=== PATIENT | male | born 1955 | race African-American/Black ===

== ENCOUNTER 2021-03-09 12:06 | Emergency (ER) | payer OTHER ==
[~2021-03-09] VITALS: Ht 175.3 cm; Wt 75.0 kg
[~2021-03-09 12:06] MED LIST: LISI20TA18 PO; MESA1.2T PO
[2021-03-09 12:43] VITALS: BP 149/83
--- NOTE | 2021-03-09 12:52 | PHYS DOC ---
Past History Past Medical History: Hypertension Additional Past Medical Histor: LIVER TRANSPLANT, ulcerative colitis Additional Past Surgical Histo: Liver transplant Smoking: Non-smoker Alcohol Use: Rarely Drug Use: None General Adult EDM: Chief Complaint: ABNORMAL LABS HPI: HPI: 66-year-old male presents with report of abnormal potassium of 7.0 which was obtained on routine laboratory draw by patient's GI physician- Dr. Bennett. Patient follows with GI physician secondary to ulcerative colitis and history of a liver transplant. Physician obtained the laboratory data this morning and called patient to present to the ER for further evaluation and treatment if needed. GI physician reports patient's creatinine was normal. Patient reports he has not had any symptoms or complaints at this time. Patient does report this is happened in the past for which he has required need for presentation to the ER. Review of Systems: Review of Systems: Constitutional: Denies fever or chills Eyes: Denies redness or eye pain HENT: Denies nasal congestion or sore throat Respiratory: Denies cough or shortness of breath Cardiovascular: Denies chest pain or palpitations GI: Denies abdominal pain, nausea, or vomiting : Denies dysuria or hematuria Musculoskeletal: Denies back pain or joint pain Integument: Denies rash or skin lesions Neurologic: Denies headache, focal weakness or sensory changes Complete systems were reviewed and found to be within normal limits, except as documented in this note. Allergies: Allergies: Allergies Coded Allergies Type Severity Reaction Last Updated Verified No Known Drug Allergies 09/04/14 No Physical Exam: PE: Constitutional: Well developed, well nourished, no acute distress, non-toxic appearance HENT: Normocephalic, atraumatic Eyes: Conjunctiva normal, no discharge Neck: Normal range of motion, supple Lungs & Thorax: No respiratory distress, equal chest rise and fall Abdomen: Soft, no tenderness, no guarding/rebound tenderness/distention Skin: Warm, dry Extremities: No tenderness, ROM intact, no edema Neurologic: Alert and oriented X 3, no focal deficits noted Psychologic: Affect normal, judgment normal Current Patient Data: Vital Signs: Vital Signs Date Time Temp Pulse Resp B/P (MAP) Pulse Ox O2 Delivery O2 Flow Rate FiO2 03/09/21 12:43 98.2 62 16 149/83 (105) 98 Room Air EKG: EKG: @1241 NSR at 60bpm, NO ST elevation, no hyperacute t waves, t wave inversion to III and aVF, QRS 76mns, QT/QTc 358/358ms Radiology/Procedures: Radiology/Procedures: [] Heart Score: C/O Chest Pain: N/A Course & Med Decision Making: Course & Med Decision Making Pertinent Lab studies reviewed. (See chart for details) Patient presents with report of hyperkalemia which was noted on routine lab draw by patient's GI specialist. Patient denies any complaint. Patient presents for reevaluation in the emergency department here today. Physical exam unremarkable. EKG obtained without acute process. Labs obtained and posted to chart. Potassium elevated but improved from previous outpatient lab result. Discussed results with Dr. Bennett (GI) regarding, who recommends initiating 6.25 mg p.o. hydrochlorothiazide daily for the next few weeks until patient can follow-up back in his office for repeat labs. Patient stable for discharge with outpatient follow-up with PCP/GI. Discussed findings and plan with patient and spouse, who acknowledge understanding and agreement. José Disclaimer: José Disclaimer: This electronic medical record was generated, in whole or in part, using a voice recognition dictation system. Departure Departure: Impression: Primary Impression: Hyperkalemia Disposition: HOME / SELF CARE / HOMELESS Condition: STABLE Referrals: TREY DE SOUZA (PCP) SABINA BENNETT MD Patient Instructions: Hyperkalemia, [id number], Potassium Content of Foods Scripts Hydrochlorothiazide (HYDROCHLOROTHIAZIDE TABLET) 12.5 Mg Tablet 6.25 MG PO DAILY for DIURETIC, #14 TAB 0 Refills Prov: DUSTY SHI DO 03/09/21 DUSTY SHI DO Mar 09, 2021 12:52
[2021-03-09 13:21] LABS: CREATININE 1.3 mg/dL (0.7-1.3); GFR 67.2; POTASSIUM 5.8 mmol/L (3.5-5.1)
[2021-03-09 13:27] LABS: ALBUMIN 4.1 g/dL (3.4-5.0); ALBUMIN/GLOBULIN RATIO 0.9 (1.0-1.7); MAGNESIUM 2.2 mg/dL (1.8-2.4); TOTAL BILIRUBIN 0.3 mg/dL (0.2-1.0); TOTAL PROTEIN 8.7 g/dL (6.4-8.2)
[2021-03-09] MEDS ORDERED: HYDR12.58 PO (13:54)
--- NOTE | 2021-03-09 19:12 | EKG ---
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
== END 2021-03-09 14:03 | disposition home or self-care (01) ==
LOC: ER 12:06
DX: E87.5 Hyperkalemia (principal); I10 Essential (primary) hypertension; Z94.4 Liver transplant status
CPT/HCPCS: 36415; 80053; 83735; 93005; 99284

== ENCOUNTER 2021-04-01 14:29 | Emergency (ER) | payer OTHER ==
[~2021-04-01] VITALS: Ht 175.3 cm; Wt 75.0 kg
[~2021-04-01 14:29] MED LIST changes: +HYDR12.58 PO
[2021-04-01 14:47] VITALS: BP 128/81
--- NOTE | 2021-04-01 15:19 | PHYS DOC ---
Past History Past Medical History: Hypertension Additional Past Medical Histor: UC Past Surgical History: Appendectomy, Cholecystectomy, Other Additional Past Surgical Histo: liver transplant 2018 Smoking: Non-smoker Alcohol Use: Rarely Drug Use: None General Adult EDM: Chief Complaint: ABNORMAL LABS HPI: HPI: Patient is a 66-year-old male coming to the emergency department at the direction of his button reclaimer patient had labs drawn this morning and showed a potassium of 6.4. Patient was seen in this ER 3 weeks ago for potassium of 8. Patient has a history of a liver transplant and ulcerative colitis. Patient has had several incidents of hyperkalemia since the transplant thousand 18. Patient is currently immune suppressed. Was discharged 2 weeks ago with hydrochlorothiazide. Patient denies any other symptoms. Review of Systems: Review of Systems: All other systems within normal limits except for as noted in the HPI Allergies: Allergies: Allergies Coded Allergies Type Severity Reaction Last Updated Verified No Known Drug Allergies 04/01/21 No Physical Exam: PE: Constitutional: Well developed, well nourished, no acute distress, non-toxic appearance. [] HENT: Normocephalic, atraumatic, bilateral external ears normal, nose normal. [] Eyes: PERRLA, conjunctiva normal, no discharge. [] Neck: No rigidity, supple, no stridor. [] Cardiovascular: Regular rate and rhythm, brisk cap refill [] Lungs & Thorax: Non labored symmetric respirations, no tachypnea or respiratory distress [] Abdomen: Soft, nondistended. Skin: Warm, dry, no erythema, no rash. [] Back: Unremarkable Extremities: No deformities, range of motion grossly intact, no lower extremity edema [] Neurologic: Alert and oriented X 3, no focal deficits noted. [] Psychologic: Affect normal, judgement normal, mood normal. [] Current Patient Data: Vital Signs: Vital Signs Date Time Temp Pulse Resp B/P (MAP) Pulse Ox O2 Delivery O2 Flow Rate FiO2 04/01/21 14:47 98.2 56 18 128/81 (97) 100 Room Air EKG: EKG: Sinus rhythm, heart rate 54 bpm, slight left axis deviation, T waves unremarkable, no ectopy, normal intervals [] Radiology/Procedures: Radiology/Procedures: [] Heart Score: C/O Chest Pain: No Risk Factors: Risk Factors: DM, Current or recent (<one month) smoker, HTN, HLP, family history of CAD, obesity. Risk Scores: Score 0 - 3: 2.5% MACE over next 6 weeks - Discharge Home Score 4 - 6: 20.3% MACE over next 6 weeks - Admit for Clinical Observation Score 7 - 10: 72.7% MACE over next 6 weeks - Early Invasive Strategies Course & Med Decision Making: Course & Med Decision Making Discussed results with patient's primary button reclaimer. The potassium was 5.5 and there was no EKG changes. 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 José Disclaimer: José Disclaimer: This electronic medical record was generated, in whole or in part, using a voice recognition dictation system. Departure Departure: Impression: Primary Impression: Hyperkalemia Disposition: 01 HOME / SELF CARE / HOMELESS Condition: STABLE Referrals: HERNANDO VORA DO (PCP) Patient Instructions: Hyperkalemia Scripts Hydrochlorothiazide (Hydrochlorothiazide) 12.5 Mg Capsule 12.5 MG PO DAILY for diuretic for 7 Days, #7 CAP Prov: LAURA CONRAD MD 04/01/21 LAURA CONRAD MD Apr 01, 2021 15:19
[2021-04-01 15:33] LABS: BASO % 1 % (0-3); EOS # 0.6 x10^3/uL (0.0-0.7); EOS % 11 % (0-3); HEMATOCRIT 38.8 % (39.0-53.0); HEMOGLOBIN 12.4 g/dL (13.0-17.5); LYMPH # 1.8 x10^3/uL (1.0-4.8); LYMPH % 33 % (24-48); MEAN CORPUSCULAR HEMOGLOBIN 26 pg (25-35); MEAN CORPUSCULAR HGB CONC 32 g/dL (31-37); MEAN CORPUSCULAR VOLUME 83 fL (79-100); MONO # 0.5 x10^3/uL (0.0-1.1); MONO % 10 % (0-9); NEUT # 2.5 x10^3uL (1.8-7.7); NEUT % 46 % (31-73); PLATELET COUNT 223 x10^3/uL (140-400); RED CELL DISTRIBUTION WIDTH 25.1 % (11.5-14.5); WHITE BLOOD COUNT 5.4 x10^3/uL (4.0-11.0)
[2021-04-01 15:41] LABS: CALCIUM 9.2 mg/dL (8.5-10.1); CREATININE 1.3 mg/dL (0.7-1.3); GFR 67.2; POTASSIUM 5.5 mmol/L (3.5-5.1)
[2021-04-01 15:46] LABS: ALBUMIN 3.9 g/dL (3.4-5.0); ALBUMIN/GLOBULIN RATIO 0.8 (1.0-1.7); MAGNESIUM 2.1 mg/dL (1.8-2.4); PHOSPHORUS 3.3 mg/dL (2.6-4.7); TOTAL BILIRUBIN 0.2 mg/dL (0.2-1.0); TOTAL PROTEIN 8.5 g/dL (6.4-8.2)
[2021-04-01] MEDS ORDERED: HYDR12.59 PO (16:34)
[2021-04-01 16:40] LABS: BACTERIA,URINE 0 /HPF (0-FEW); BILIRUBIN,URINE NEG (NEG); CLARITY,URINE CLEAR; COLOR,URINE YELLOW; GLUCOSE,URINE NEG (NEG); NITRITE,URINE NEG (NEG); RBC,URINE OCC /HPF (0-2); UROBILINOGEN,URINE 0.2 mg/dL (0.2 mg/dL); WBC,URINE OCC /HPF (0-4)
[2021-04-01 16:47] LABS: ANISOCYTOSIS MOD; PLT ESTIMATE ADEQUATE (ADEQUATE)
--- NOTE | 2021-04-01 18:44 | EKG ---
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
== END 2021-04-01 16:40 | disposition home or self-care (01) ==
LOC: ER 14:29
DX: E87.5 Hyperkalemia (principal); I10 Essential (primary) hypertension; Z90.49 Acquired absence of other specified parts of digestive tract
CPT/HCPCS: 36415; 80053; 81001; 83735; 84100; 85025; 93005; 99284-25

== ENCOUNTER → 2021-08-27 | Outpatient (CLI) | payer OTHER ==
[~2021-08-27] MED LIST changes: +HYDR12.59 PO
== END ==
LOC: LAB 10:43
PROVIDERS: ATTEND Internal Medicine Gastroenterology
DX: A04.72 Enterocolitis due to Clostridium difficile, not specified as recurrent (principal)
CPT/HCPCS: 87493

== ENCOUNTER → 2021-09-13 | Outpatient (CLI) | payer OTHER | LOC: LAB 08:23 | PROVIDERS: ATTEND Internal Medicine Gastroenterology | DX: A04.72 Enterocolitis due to Clostridium difficile, not specified as recurrent (principal) | CPT/HCPCS: 87493 ==

== ENCOUNTER → 2021-10-03 | Outpatient (CLI) | payer OTHER | LOC: LAB 06:35 | PROVIDERS: ATTEND Internal Medicine Gastroenterology | DX: A04.72 Enterocolitis due to Clostridium difficile, not specified as recurrent (principal) | CPT/HCPCS: 87493 ==

== ENCOUNTER → 2021-10-19 | Outpatient (CLI) | payer OTHER | LOC: LAB 15:52 | PROVIDERS: ATTEND Internal Medicine Gastroenterology | DX: A04.72 Enterocolitis due to Clostridium difficile, not specified as recurrent (principal) | CPT/HCPCS: 87493 ==